=== PATIENT | male | born 1955 | race African-American/Black ===

== ENCOUNTER 2016-07-11 16:08 | Emergency (ER) | payer BC ==
[~2016-07-11] VITALS: Ht 177.8 cm; Wt 84.0 kg
[~2016-07-11 16:08] MED LIST: CHOL50006 PO; LORT5TAB PO; PERC5TAB12 PO; [UNRECOGNIZED DRUG - OTHER] PO
[2016-07-11 16:10] VITALS: BP 171/108; PULSE 72; RESP 20; TEMP 98.4; O2SAT 99
[2016-07-11 16:33] VITALS: BP 170/106; PULSE 68; RESP 16; O2SAT 98
--- NOTE | 2016-07-11 16:37 | PD ---
Physical Exam Date Seen by Provider: Jul 11, 2016 Time Seen by Provider: 16:33 Narrative Pt states he became dizzy while at work today, this lasted most of the day ( about 10 hours). Pt reports feeling as if the room was spinning. Pt continued to try and work through it. He went into the freezer which helped his symptoms. He feels fine currently. No LYN, CP, nasal congestion currently, prior to or during the dizzy spell. Pt denies any pain or other physical complaints. PCP is Dr. Disla. Data Data Last Documented VS Vital Signs Date Time Temp Pulse Resp B/P Pulse Ox O2 Delivery O2 Flow Rate FiO2 07/11/16 16:10 98.4 72 20 171/108 99 Room Air MDM Supervised Visit with BRAYDEN: Stephany Cruz Jul 11, 2016 16:37
[2016-07-11] MEDS ORDERED: SODIUM CHLOR 0.9% 1000 ML INJ 1,000 ML IV ONE (17:46)
--- NOTE | 2016-07-11 17:48 | PD ---
HPI Chief Complaint: Dizziness Time Seen by Provider: 17:47 Travel History International Travel<30 days: No Contact w/Intl Traveler<30days: No Traveled to known affect area: No History of Present Illness HPI 61-year-old male presents to the emergency department for evaluation of dizziness that started this morning around 8 AM. He states he felt fine and went to work. However, during work, he felt dizzy. He states that the room was spinning around him. He states it lasted for approximately 3-4 hours and then resolved on its own. The patient denies any syncope. He states his symptoms did worsen with movement. He had no headache. No visual changes. No chest pain or shortness of breath. No abdominal pain. No nausea, vomiting, diarrhea. Patient reports history of colon cancer and is in current remission. He has no other medical problems and takes no prescribed medications. PFSH Past Medical History Anxiety: No Depression: No Cancer: No Cardiovascular Problems: No Chemotherapy: No Diabetes: No Endocrine: No Genitourinary: No Hepatitis: No Hiatal Hernia: No Immune Disorder: No Musculoskeletal: No Neurologic: No Psychiatric: Yes Reproductive: No Respiratory: No Radiation Therapy: No Sickle Cell Disease: No Thyroid Disease: No Past Surgical History Abdominal Surgery: No AICD: No Arteriovenous Shunt: Yes Body Medical Devices: left ankle hardware penile implant Cardiac Surgery: No Ear Surgery: No Endocrine Surgery: No Eye Surgery: No Genitourinary Surgery: Yes (PENIS INPLANT) Insulin Pump: Yes Joint Replacement: Yes Oral Surgery: Yes (WISDOM TEETH REMOVED 2012) Pacemaker: No Thoracic Surgery: No Social History Alcohol Use: No Tobacco Use: No Substance Use: No Allergies-Medications (Allergen,Severity, Reaction): Coded Allergies: No Known Allergies (Unverified , 08/25/12) Reported Meds & Prescriptions Reported Meds & Active Scripts Active No Active Prescriptions or Reported Medications Review of Systems Except as stated in HPI: all other systems reviewed are Neg Physical Exam Narrative GENERAL: Well-nourished, well-developed male patient, ambulatory and in no acute distress. Afebrile. SKIN: Focused skin assessment warm/dry. HEAD: Normocephalic. Atraumatic. ENT: Mucosa pink and moist. No erythema or exudates. No uvular edema. No uvular , palatal, or tonsillar deviation. Airway patent. Nasal turbinates appear normal without nasal blood, purulent drainage or septal hematoma. Bilateral tympanic membranes are clear without erythema or perforation. EYES: No scleral icterus. No injection or drainage. NECK: Supple, trachea midline. No JVD or lymphadenopathy. CARDIOVASCULAR: Regular rate and rhythm without murmurs, gallops, or rubs. RESPIRATORY: Breath sounds equal bilaterally. No accessory muscle use. Lungs sounds are clear to auscultation. GASTROINTESTINAL: Abdomen soft, non-tender, nondistended. MUSCULOSKELETAL: No cyanosis, or edema. Bilateral upper and lower extremity strength 5/5. All extremities are neurovascularly intact. BACK: Nontender without obvious deformity. No CVA tenderness. NEUROLOGICAL: Awake and alert. Cranial nerves II through XII intact. Motor and sensory grossly within normal limits. Five out of 5 muscle strength in all muscle groups. Normal speech. Finger to nose is normal bilaterally. Heel-to- posada is normal bilaterally. Data Data Last Documented VS Vital Signs Date Time Temp Pulse Resp B/P Pulse Ox O2 Delivery O2 Flow Rate FiO2 07/11/16 18:46 63 18 169/99 73 18 180/105 70 18 193/111 07/11/16 17:57 100 Room Air 07/11/16 16:10 98.4 Orders Electrocardiogram (07/11/16 ) Complete Blood Count With Diff (07/11/16 17:46) Comprehensive Metabolic Panel (07/11/16 17:46) Magnesium (Mg) (07/11/16 17:46) Ckmb (Isoenzyme) Profile (07/11/16 17:46) Troponin I (07/11/16 17:46) Ecg Monitoring (07/11/16 17:46) Iv Access Insert/Monitor (07/11/16 17:46) Oximetry (07/11/16 17:46) Sodium Chloride 0.9% Flush (Ns Flush) (07/11/16 18:00) Sodium Chlor 0.9% 1000 Ml Inj (Ns 1000 M (07/11/16 17:46) Orthostatic Vital Signs (07/11/16 17:46) CKMB (07/11/16 18:00) CKMB% (07/11/16 18:00) Labs Laboratory Tests Test 07/11/16 18:00 White Blood Count 12.1 TH/MM3 Red Blood Count 4.64 MIL/MM3 Hemoglobin 14.4 GM/DL Hematocrit 44.0 % Mean Corpuscular Volume 94.8 FL Mean Corpuscular Hemoglobin 30.9 PG Mean Corpuscular Hemoglobin 32.6 % Concent Red Cell Distribution Width 12.9 % Platelet Count 189 TH/MM3 Mean Platelet Volume 8.2 FL Neutrophils (%) (Auto) 70.4 % Lymphocytes (%) (Auto) 20.6 % Monocytes (%) (Auto) 8.2 % Eosinophils (%) (Auto) 0.5 % Basophils (%) (Auto) 0.3 % Neutrophils # (Auto) 8.5 TH/MM3 Lymphocytes # (Auto) 2.5 TH/MM3 Monocytes # (Auto) 1.0 TH/MM3 Eosinophils # (Auto) 0.1 TH/MM3 Basophils # (Auto) 0.0 TH/MM3 CBC Comment DIFF FINAL Differential Comment Sodium Level 137 MEQ/L Potassium Level 3.7 MEQ/L Chloride Level 104 MEQ/L Carbon Dioxide Level 26.7 MEQ/L Anion Gap 6 MEQ/L Blood Urea Nitrogen 15 MG/DL Creatinine 1.16 MG/DL Estimat Glomerular Filtration 77 ML/MIN Rate Random Glucose 76 MG/DL Calcium Level 9.5 MG/DL Magnesium Level 2.5 MG/DL Total Bilirubin 0.6 MG/DL Aspartate Amino Transf 25 U/L (AST/SGOT) Alanine Aminotransferase 38 U/L (ALT/SGPT) Alkaline Phosphatase 53 U/L Total Creatine Kinase 256 U/L Creatine Kinase MB 3.5 NG/ML Troponin I LESS THAN 0.02 NG/ML Total Protein 8.3 GM/DL Albumin 4.2 GM/DL [facility] Medical Decision Making Medical Screen Exam Complete: Yes Emergency Medical Condition: Yes Medical Record Reviewed: Yes Differential Diagnosis Vertigo versus electrolyte abnormality versus orthostatic hypotension versus dehydration versus unlikely TIA Narrative Course 61-year-old male presents to the emergency department for evaluation of dizziness that occurred while at work today. He states the symptoms have resolved. He states it felt like the room was spinning around him. He had no other symptoms. Patient does appear well on exam. No focal deficits noted on neuro exam. EKG shows SR, HR 63, no acute changes. CBC, CMP, magnesium, CK, troponin are ordered and pending. Orthostatic vital signs are ordered and pending. Patient is given normal saline 1 L IV bolus. CBC shows leukocytosis of 12.1. CMP shows no acute abnormality. Magnesium is 2.5. CK is 256. Troponin is less than 0.02. Orthostatic VS are negative for orthostatic hypotension. Patient states he feels great and would like to go home. My attending physician , Dr. Brock, is aware of physical exam findings and laboratory findings. He agrees with plan and disposition. Patient will be discharged with a prescription for Meclizine. He is instructed to return immediately for any acute, worsening of symptoms. The patient was discharged in stable condition with instructions, including return instructions and follow up instructions. Diagnosis Primary Impression: Vertigo Referrals: Primary Care Physician call for appointment Patient Instructions: General Instructions, Vertigo (ED) Departure Forms: Tests/Procedures, Work Release Enter return to work date: Jul 13, 2016 Additional Instructions: Take meclizine as directed as needed for vertigo. Follow up with your primary care physician. Return to the emergency department for any acute, worsening of symptoms. Med/Other Pt SpecificInfo: Prescription(s) given Scripts Meclizine 25 Mg Tab25 Mg PO TID PRN (VERTIGO) #16 TAB Ref 0 Prov:Akilah Patterson 07/11/16 Disposition: 01 DISCHARGE HOME Condition: Stable Akilah Patterson Jul 11, 2016 17:48
[2016-07-11 17:57] VITALS: RESP 18; O2SAT 100
[2016-07-11] MEDS ORDERED: SODIUM CHLORIDE 0.9% FLUSH 10 ML FLUSH IVF PRN (18:00)
[2016-07-11 18:09] LABS: AUTOMATED NEUTROPHIL # 8.5 TH/MM3 (1.8-7.7); BASOPHIL % 0.3 % (0.0-2.0); EOSINOPHIL # 0.1 TH/MM3 (0-0.4); EOSINOPHIL % 0.5 % (0.0-4.0); HEMO FLAGS DIFF FINAL; LYMPH % 20.6 % (9.0-44.0); LYMPHOCYTE # 2.5 TH/MM3 (1.0-4.8); MEAN CELL VOLUME 94.8 FL (80.0-100.0); MEAN CORPUSCULAR HEMOGLOBIN 30.9 PG (27.0-34.0); MEAN CORPUSCULAR HGB CONC 32.6 % (32.0-36.0); MONO % 8.2 % (0.0-8.0); NEUT % 70.4 % (16.0-70.0); PLATELET COUNT 189 TH/MM3 (150-450); RED BLOOD COUNT 4.64 MIL/MM3 (4.50-5.90); RED CELL DISTRIBUTION WIDTH 12.9 % (11.6-17.2); WHITE BLOOD COUNT 12.1 TH/MM3 (4.0-11.0)
[2016-07-11 18:38] LABS: ANION GAP 6 MEQ/L (5-15); AST (GOT) 25 U/L (15-37); BICARBONATE 26.7 MEQ/L (21.0-32.0); BLOOD UREA NITROGEN 15 MG/DL (7-18); CHLORIDE 104 MEQ/L (98-107); GLOMERULAR FILTRATION RATE 77 ML/MIN (>89); MAGNESIUM 2.5 MG/DL (1.5-2.5); POTASSIUM 3.7 MEQ/L (3.5-5.1); SODIUM (NA) 137 MEQ/L (136-145)
[2016-07-11 18:45] LABS: ALKALINE PHOSPHATASE 53 U/L (45-117); ALT (GPT) 38 U/L (12-78); CREATINE KINASE 256 U/L (39-308); TOTAL BILIRUBIN ADULT 0.6 MG/DL (0.2-1.0)
[2016-07-11 18:46] VITALS: BP_SYST 169; BP_SYST 180; BP_SYST 193; BP_DIAS 105; BP_DIAS 111; BP_DIAS 99; RESP 18
[2016-07-11 18:58] LABS: CKMB 3.5 NG/ML (0.5-3.6)
[2016-07-11] MEDS ORDERED: MECL-62 PO (19:28)
--- NOTE | 2016-07-12 13:51 | EKG ---
Date Performed: 07/11/2016 Time Performed: 16:48:06 PTAGE: 61 years EKG: Sinus rhythm MARKED LEFT AXIS DEVIATION ABNORMAL ECG PREVIOUS TRACING : 12/31/2011 09.52 Compared to prior tracing no significant change DOCTOR: Yemi Jenkins Interpretating Date/Time 07/12/2016 13:49:23
== END 2016-07-11 20:13 | disposition home or self-care (01) ==
LOC: NEPD 16:08
DX: R42 Dizziness and giddiness (principal); R94.31 Abnormal electrocardiogram [ECG] [EKG]; Z85.038 Personal history of other malignant neoplasm of large intestine
CPT/HCPCS: 80053; 82550; 82552; 83735; 84484; 85025; 93005; 96360; 99284; J7030